=== PATIENT | male | born 1995 | race Caucasian/White ===

== ENCOUNTER 2019-07-19 19:30 | Emergency (ER) | payer SELFPAY ==
[2019-07-19] MEDS ORDERED: cefTRIAXone 1 GM Vial IM ONE (20:09)
[2019-07-19] MEDS ORDERED: Azithromycin 250 MG Tab PO STA (20:09)
--- NOTE | 2019-07-19 20:12 | EDM.PDOC ---
ED HPI GENERAL MEDICAL PROBLEM - General Chief Complaint: Genitourinary Problem Stated Complaint: POSSIBLE BLADDER INFECTION Time Seen by Provider: 07/19/19 20:06 Source of Information: Reports: Patient History Limitations: Reports: No Limitations - History of Present Illness INITIAL COMMENTS - FREE TEXT/NARRATIVE: HISTORY AND PHYSICAL: History of present illness: Patient is a 23-year-old male who presents to the ED today with concern of penile discharge over the past several days. Patient states he did have unprotected sexual intercourse with a new partner approximately one week ago. Patient denies any burning with urination or any associated symptoms. Patient denies any other symptoms or concerns. Patient denies fever, chills, chest pain, shortness of breath, or cough. Denies headache, neck stiff ness, change in vision, syncope, or near syncope. Denies nausea, vomiting, abdominal pain, diarrhea, constipation, or dysuria. Has not noted any blood in urine or stool. Patient has been eating and drinking appropriately. Review of systems: As per history of present illness and below otherwise all systems reviewed and negative. Past medical history: As per history of present illness and as reviewed below otherwise noncontributory. Surgical history: As per history of present illness and as reviewed below otherwise noncontributory. Social history: See social history for further information Family history: As per history of present illness and as reviewed below otherwise noncontributory. Physical exam: General: Patient is alert, oriented, and in no acute distress. Patient sitting comfortably on exam table. HEENT: Atraumatic, normocephalic, pupils equal and reactive bilaterally, negative for conjunctival pallor or scleral icterus, mucous membranes moist, TMs normal bilaterally, throat clear, neck supple, nontender, trachea midline. No drooling or trismus noted. No meningeal signs. No hot potato voice noted. Lungs: Clear to auscultation, breath sounds equal bilaterally, chest nontender. Heart: S1S2, regular rate and rhythm without overt murmur Abdomen: Soft, nondistended, nontender. Negative for masses or hepatosplenomegaly. Negative for costovertebral tenderness. Pelvis: Stable nontender. Genitourinary: Deferred. Rectal: Deferred. Skin: Intact, warm, dry. No lesions or rashes noted. Extremities: Atraumatic, negative for cords or calf pain. Neurovascular unremarkable. Neuro: Awake, alert, oriented. Cranial nerves II through XII unremarkable. Cerebellum unremarkable. Motor and sensory unremarkable throughout. Exam nonfocal. Notes: Discussed the importance for follow-up with a primary care provider and that if he desires full STD screening that he can get this done with his primary care provider or at the [facility]. Voices understanding and is agreeable to plan of care. Denies any further questions or concerns at this time. Diagnostics: UA, Gonorrhea and chlamydia Therapeutics: Rocephin, Azithromycin Prescription: None Impression: Penile discharge High risk sexual activity Plan: 1. You can alternate ibuprofen and Tylenol as directed for pain and discomfort. 2. If he desires a full STD screening, you can get this done with her primary care provider or at the [facility]. 3. Follow up with the primary care provider as discussed. Return to the ED as needed and as discussed. Definitive disposition and diagnosis as appropriate pending reevaluation and review of above. - Related Data Allergies Allergy/AdvReac Type Severity Reaction Status Date / Time No Known Allergies Allergy Verified 07/19/19 19:34 Home Meds: Home Meds . [No Known Home Meds] 07/19/19 [History] Past Medical History - Past Health History Medical/Surgical History: Denies Medical/Surgical History Social & Family History - Family History Family Medical History: Noncontributory - Tobacco Use Smoking Status *Q: Never Smoker - Recreational Drug Use Recreational Drug Use: No ED ROS GENERAL - Review of Systems Review Of Systems: Comprehensive ROS is negative, except as noted in HPI. ED EXAM, GENERAL - Physical Exam Exam: See Below (see dictation) Course - Vital Signs Last Recorded V/S: Last Vital Signs Temp 98.1 F 07/19/19 19:45 Pulse 81 07/19/19 19:45 Resp 18 07/19/19 19:45 BP 196/100 H 07/19/19 19:45 Pulse Ox 97 07/19/19 19:45 - Orders/Labs/Meds Orders: Active Orders 24 hr Category Date Time Status CHLAMYDIA AND GONORRHEA BY TMA Stat Lab 07/19/19 20:06 Ordered UA RFX PEDRO PABLO AND CULT IF INDIC [URIN] Stat Lab 07/19/19 20:06 Ordered Azithromycin [Zithromax] Med 07/19/19 20:09 Stat 1,000 mg PO NOW STA cefTRIAXone [Rocephin] Med 07/19/19 20:09 Once 1 gm IM ONETIME ONE Medication Orders Ceftriaxone Sodium (Rocephin) 1 gm IM ONETIME ONE Stop: 07/19/19 20:10 Meds: Medications Generic Name Dose Route Start Last Admin Trade Name Morgan MAY Reason Stop Dose Admin Ceftriaxone Sodium 1 gm 07/19/19 20:09 Rocephin IM 07/19/19 20:10 ONETIME ONE Departure - Departure Time of Disposition: 20:12 Disposition: Home, Self-Care 01 Clinical Impression: Drainage from penis High risk sexual behavior Qualifiers: High risk sexual behavior type: unspecified Qualified Code(s): Z72.51 - High risk heterosexual behavior - Discharge Information Referrals: PCP,None [Primary Care Provider] - Additional Instructions: The following information is given to patients seen in the emergency department who are being discharged to home. This information is to outline your options for follow-up care. We provide all patients seen in our emergency department with a follow-up referral. The need for follow-up, as well as the timing and circumstances, are variable depending upon the specifics of your emergency department visit. If you don't have a primary care physician on staff, we will provide you with a referral. We always advise you to contact your personal physician following an emergency department visit to inform them of the circumstance of the visit and for follow-up with them and/or the need for any referrals to a consulting specialist. The emergency department will also refer you to a specialist when appropriate. This referral assures that you have the opportunity for follow-up care with a specialist. All of these measure are taken in an effort to provide you with optimal care, which includes your follow-up. Under all circumstances we always encourage you to contact your private physician who remains a resource for coordinating your care. When calling for follow-up care, please make the office aware that this follow-up is from your recent emergency room visit. If for any reason you are refused follow-up, please contact the [facility] at and asked to speak to the emergency department charge nurse. [facility] [address] [place] [id number] [facility] [address] [place] [address] 1. You can alternate ibuprofen and Tylenol as directed for pain and discomfort. 2. If he desires a full STD screening, you can get this done with her primary care provider or at the [facility]. 3. Follow up with the primary care provider as discussed. Return to the ED as needed and as discussed. Sepsis Event Note - Evaluation Sepsis Screening Result: No Definite Risk - Focused Exam Vital Signs: Vital Signs Temp Pulse Resp BP Pulse Ox 07/19/19 19:45 98.1 F 81 18 196/100 H 97 Date Exam was Performed: 07/19/19 Time Exam was Performed: 20:10 - My Orders Last 24 Hours: My Active Orders 07/19/19 20:06 CHLAMYDIA AND GONORRHEA BY TMA Stat UA RFX PEDRO PABLO AND CULT IF INDIC [URIN] Stat 07/19/19 20:09 Azithromycin [Zithromax] 1,000 mg PO NOW STA cefTRIAXone [Rocephin] 1 gm IM ONETIME ONE - Assessment/Plan Last 24 Hours: My Active Orders 07/19/19 20:06 CHLAMYDIA AND GONORRHEA BY TMA Stat UA RFX PEDRO PABLO AND CULT IF INDIC [URIN] Stat 07/19/19 20:09 Azithromycin [Zithromax] 1,000 mg PO NOW STA cefTRIAXone [Rocephin] 1 gm IM ONETIME ONE
== END 2019-07-19 21:08 | disposition home or self-care (01) ==
LOC: MW.ED 19:30
DX: R36.9 Urethral discharge, unspecified (principal); Z72.51 High risk heterosexual behavior
CPT/HCPCS: 81003; 87491; 87591; 96372; 99283; A9270; J0696; J2001